=== PATIENT | male | born 1950 | race Caucasian/White ===

== ENCOUNTER 2020-09-23 12:17 | Inpatient (IN) | payer MEDICARE, MEDICAID ==
[2020-09-15 15:08] LABS: BASOPHILS # (AUTO) 0.1 X10'3 (0-0.2); BASOPHILS % (AUTO) 0.4 % (0-1); EOSINOPHILS # (AUTO) 0.2 X10'3 (0-0.9); EOSINOPHILS % (AUTO) 1.4 % (0-6); LYMPHOCYTES # (AUTO) 1.6 X10'3 (1.1-4.8); LYMPHOCYTES % (AUTO) 12.5 % (21-51); MEAN CORPUSCULAR HEMOGLOBIN 30.9 PG (27.0-31.0); MEAN CORPUSCULAR HGB CONC 33.8 g/dL (33.0-36.5); MEAN CORPUSCULAR VOLUME 91.4 FL (78-98); MEAN PLATELET VOLUME 8.6 FL (7.4-10.4); MONOCYTES # (AUTO) 1.4 X10'3 (0-0.9); MONOCYTES % (AUTO) 10.5 % (2-12); NEUTROPHILS # (AUTO) 9.8 X10'3 (1.8-7.7); NEUTROPHILS % (AUTO) 75.2 % (42-75); PRE OP HEMOGLOBIN 14.2 g/dL (14.0-17.9); PRE OP PLATELET COUNT 382 X10'3 (140-440); RED CELL DISTRIBUTION WIDTH 14.9 % (11.5-14.5)
[2020-09-15 15:14] LABS: CLARITY,URINE CLOUDY (Clear); COLOR,URINE YELLOW (Yellow); GLUCOSE, URINE NEGATIVE (Neg); KETONES,URINE NEGATIVE (Neg); LEUKOCYTE ESTERASE ,URINE NEGATIVE (Neg); NITRITES, URINE NEGATIVE (Neg); OCCULT BLOOD,URINE NEGATIVE (Neg); PROTEIN,URINE NEGATIVE (Neg); UROBILINOGEN,URINE 0.2 E.U/dL (0.2-1.0)
[2020-09-15 15:16] LABS: PRE OP INR 1.1 INR; PRE OP PROTIME 11.4 SECONDS (9.0-12.0)
[2020-09-15 15:18] LABS: ALBUMIN 4.5 G/DL (3.4-5.0); ALKALINE PHOSPHATASE 120 IU/L (46-116); BLOOD UREA NITROGEN 25 MG/DL (7-18); BUN/CREATININE RATIO 18.1 (5.4-32.0); CALCIUM 9.3 MG/DL (8.5-10.1); CHLORIDE 100 MMOL/L (99-107); CREATININE 1.38 MG/DL (0.60-1.10); PRE OP ALT 31 U/L (30-65); PRE OP ANION GAP 12 (8-16); PRE OP AST 22 U/L (10-37); PRE OP BILIRUB, TOTAL 0.4 MG/DL (0.0-1.0); PRE OP GLUCOSE 121 MG/DL (70-104); PRE OP POTASSIUM 3.5 MMOL/L (3.4-5.1); PRE OP SODIUM 137 MMOL/L (135-145); TOTAL CARBON DIOXIDE 24.7 MMOL/L (24-32); TOTAL PROTEIN 8.9 G/DL (6.4-8.2); eGFR 51 ML/MIN
[2020-09-15 15:21] LABS: UA COLLECTION TYPE NON-SPECIFIED
[2020-09-15 15:25] LABS: BACTERIA,URINE 1+ /HPF (Neg); RBC,URINE NONE SEEN /HPF (0-2); SQUAMOUS EPITHELIAL CELL,UR MANY /LPF (FEW); WBC,URINE NONE SEEN /HPF (0-4)
[2020-09-15 15:27] LABS: AMORPHOUS PHOSPHATES 3+
[~2020-09-23] VITALS: Ht 185.4 cm; Wt 100.0 kg
[2020-09-23] VITALS (17 sets, daily range): BP systolic 121–160; BP diastolic 48–90
[~2020-09-23 12:17] MED LIST: AMLO10TA4 PO; CARV3.12 PO; DOCUMENT DATE & TIME OF BETA-BLOCKER PO ONE; HYDR25TA4 PO; LOSA100T57 PO; OXYC5CAP19 PO; SULF1TAB45 PO; cefazolin/dext.iso 2gm/100ml IV ONE; famotidine 20mg tablet PO ONE; vancomycin 1,500 MG in NS 300ml IV soln IV ONE
[2020-09-23] MEDS: ringers solution, lacted 1,000 ML IV SCH ×2 (13:15→21:14)
[2020-09-23] MEDS ORDERED: bacitracin 15gm ointment TP ONE (15:25)
[2020-09-23] MEDS ORDERED: fentaNYL /PF 50mcg/ml 5ml ampule ONE (16:02)
[2020-09-23] MEDS ORDERED: midazolam 1 mg/ML 2ml injection ONE (16:02)
[2020-09-23] MEDS ORDERED: rocuronium 10mg/ml inj IV ONE ×2 (16:03→18:52)
[2020-09-23] MEDS ORDERED: neostigmine methylsulfate 1 MG/ML 10ml vial ONE (16:03)
[2020-09-23] MEDS ORDERED: glycopyrrolate 0.2mg/ml inj ONE (16:03)
[2020-09-23] MEDS ORDERED: sevoflurane 250ml liquid IH ONE (16:03)
[2020-09-23] MEDS ORDERED: ringers solution, lacted 1,000 ML IV SCH (16:50)
[2020-09-23] MEDS ORDERED: ROPIVAcaine 0.2% (10 MG/5 ML) BOLUS INJECTION POPLITEAL PRN (16:50)
[2020-09-23] MEDS ORDERED: ROPIVAcaine 0.2%/PF PUMP/bolus 545 ML POPLITEAL SCH (16:50)
[2020-09-23] MEDS ORDERED: ondansetron/PF 4mg/2ml inj IV PRN ×2 (16:50→18:45)
[2020-09-23] MEDS ORDERED: HYDROmorphone/PF 0.2 MG/ML SYRINGE IV PRN ×2 (16:50)
[2020-09-23] MEDS ORDERED: morphine 2 MG/ML inj. syringe IV PRN ×2 (16:50→18:45)
[2020-09-23] MEDS ORDERED: mag hydrox/Alum hydrox/simeth 30ml oral suspension PO PRN (18:45)
[2020-09-23] MEDS ORDERED: acetaminophen 325mg tablet PO PRN (18:45)
[2020-09-23] MEDS ORDERED: HYDROcodone/acetaminophen 5mg/325mg tablet PO PRN (18:45)
[2020-09-23] MEDS ORDERED: HYDROcodone/acetaminophen 10/325mg tab PO PRN (18:45)
[2020-09-23] MEDS ORDERED: magnesium hydroxide 30ml (MOM) UD suspension PO PRN (18:45)
[2020-09-23] MEDS ORDERED: ROPIVAcaine 0.5% (5mg/ml) 30ml vial ONE (18:52)
[2020-09-23] MEDS ORDERED: LIDOcaine 1%/PF 5ML 10 MG/ML VIAL ONE (18:52)
[2020-09-23] MEDS ORDERED: dexamethasone sod phosphate 4mg/ml inj. ONE (18:52)
[2020-09-23] MEDS ORDERED: ondansetron/PF 4mg/2ml inj ONE (18:52)
[2020-09-23] MEDS ORDERED: propofol inj 20 ML IV ONE (18:52)
[2020-09-23] MEDS ORDERED: ePHEDrine 50MG/ML INJ. ONE (19:00)
--- NOTE | 2020-09-23 19:00 | NUR ---
ADMITTED TO PACU FROM OR ACCOMPANIED BY ANESTHESIA. INTIAL PHYSICAL ASSESSMENT DONE AND RECORDED. REPORT RECEIVED FROM ANESTHESIA.
--- NOTE | 2020-09-23 19:38 | NUR ---
received report from carolyn paul from recovery over phone
--- NOTE | 2020-09-23 20:00 | NUR ---
PACU DISCHARGE CRITERIA MET, REPORT GIVEN TO FLOOR. DENIES PAIN OR DISCOMFORT, TRANSFERRED TO ROOM IN STABLE GOOD CONDITION.
[2020-09-23] MEDS ORDERED: HYDROchlorothiazide 25mg tablet PO SCH (21:00)
[2020-09-23] MEDS: oxyCODONE IR 5mg (immed. release) tablet PO PRN (21:34)
[2020-09-23] MEDS: carVEDilol 3.125mg tablet PO SCH (21:34)
[2020-09-23] MEDS: sulfamethoxazole/trimethoprim DS (800/160mg) tablet PO SCH (21:34)
--- NOTE | 2020-09-23 22:14 | NUR ---
notified dr davison and got a heart healthy diet for pt
--- NOTE | 2020-09-23 23:19 | NUR ---
notified dr davison in order to get restoril for pt. ordered 15 mg of restoril
[2020-09-23] MEDS ORDERED: temazepam 15mg capsule PO ONE (23:20)
[2020-09-24 00:03] VITALS: BP 118/68
[2020-09-24 02:00] VITALS: BP 150/89
[2020-09-24 03:22] LABS: CLARITY,URINE CLEAR (Clear); COLOR,URINE YELLOW (Yellow); UA COLLECTION TYPE CLN CATCH MIDSTREAM
[2020-09-24 03:23] LABS: PROTEIN,URINE NEGATIVE (Neg)
[2020-09-24 03:24] LABS: GLUCOSE, URINE NEGATIVE (Neg); KETONES,URINE NEGATIVE (Neg); LEUKOCYTE ESTERASE ,URINE NEGATIVE (Neg); NITRITES, URINE NEGATIVE (Neg); OCCULT BLOOD,URINE NEGATIVE (Neg); UROBILINOGEN,URINE 0.2 E.U/dL (0.2-1.0)
[2020-09-24 06:00] VITALS: BP 132/77
--- NOTE | 2020-09-24 06:10 | NUR ---
Problems reprioritized. Patient report given, questions answered & plan of care reviewed with benji paul.
[2020-09-24] MEDS: carVEDilol 3.125mg tablet PO SCH (07:44)
[2020-09-24] MEDS: sulfamethoxazole/trimethoprim DS (800/160mg) tablet PO SCH (07:45)
[2020-09-24] MEDS: oxyCODONE IR 5mg (immed. release) tablet PO PRN ×2 (07:45→12:33)
[2020-09-24] MEDS ORDERED: amLODIPine 5mg tablet PO SCH (08:00)
[2020-09-24] MEDS ORDERED: losartan 50mg tablet PO SCH (08:00)
[2020-09-24 10:00] VITALS: BP 143/74
--- NOTE | 2020-09-24 10:28 | NUR ---
PAGER ID: [phone] MESSAGE: [phone] [phone]- jona [facility] [place] in [id number]- Dr Velasquez pt. Dr Velasquez told me ok to dc pt, I will put orders in as he dictated to me. Just FILI
[2020-09-24] MEDS ORDERED: SULF1TAB45 PO (10:49)
--- NOTE | 2020-09-27 13:05 | NUR ---
CASE MANAGEMENT DISCHARGE FOLLOW UP: Spoke with pt via telephone. Reports that he is doing better now that external fixator has been removed, rates pain in foot/ankle as 4-5/10 and is tolerable; denies CP, SOB, fever/chills, s/sx infection. Verbalizes understanding of s/sx requiring further evaluation/emergent assistance. Verbalizes understanding of new and current medications, taking abx as prescribed. Verbalizes compliance with MD discharge instructions, maintaining non-weightbearing status, getting around his house okay, states has roommate and [employer] workers to help him as needed. Verbalizes understanding of the importance in making/keeping follow-up appointments, requests assistance in setting up f/u appointment. States no further questions/concerns at this time. 1320 T/c to surgeon's office, pt already has post op appt scheduled for 10/03/20@1350, will notify pt. 1322 T/c to pt, notified him of f/u appointment with surgeon, pt states that he will be there.
== END 2020-09-24 13:00 | disposition home or self-care (01) | DRG 941 ==
LOC: PAS 12:17 → EDSTATUS 16:30 → ORTHO 4S 20:34
PROVIDERS: ADMIT Podiatrist Foot & Ankle Surgery; ATTEND Podiatrist Foot & Ankle Surgery
PROC: 0SPGX5Z Removal of External Fixation Device from Left Ankle Joint, External Approach (ICD-10-PCS; 2020-09-23)
PROC: 3E0T3BZ Introduction of Anesthetic Agent into Peripheral Nerves and Plexi, Percutaneous Approach (ICD-10-PCS; 2020-09-23)
PROC: 0SGG04Z Fusion of Left Ankle Joint with Internal Fixation Device, Open Approach (ICD-10-PCS; principal; 2020-09-23 16:03)
DX: Z44.8 Encounter for fitting and adjustment of other external prosthetic devices (principal); M25.572 Pain in left ankle and joints of left foot; I10 Essential (primary) hypertension; I73.9 Peripheral vascular disease, unspecified; M81.0 Age-related osteoporosis without current pathological fracture; M54.9 Dorsalgia, unspecified; G89.4 Chronic pain syndrome; Z87.891 Personal history of nicotine dependence; Z82.49 Family history of ischemic heart disease and other diseases of the circulatory system; Z79.899 Other long term (current) drug therapy
CPT/HCPCS: 36415; 73600; 76000; 80053; 81001; 81003; 82948; 85025; 85610; 85730; 87081; 93005; A4618; A6223; A6253; A6449; A7000; C1713; G0378; J1100; J1170; J2250; J2405; J2704; J2710; J2795; J3010; J3370; J3490; J7040; J7120